=== PATIENT | male | born 1965 | race Caucasian/White ===

== ENCOUNTER 2022-12-25 11:37 | Inpatient (IN) | payer BC ==
[~2022-12-25] VITALS: Ht 175.3 cm; Wt 72.6 kg
[2022-12-25] MEDS ORDERED: METOCLOPRAMIDE HCL 10 MG/2 ML VIAL IV ONE (11:45)
[2022-12-25] MEDS ORDERED: KETOROLAC TROMETHAMINE 15 MG INJ IVP ONE (11:45)
[2022-12-25] MEDS ORDERED: IV NORMAL SALINE 1000 ML BAG IV ONE (11:45)
[2022-12-25 12:03] LABS: *BILIRUBIN,URIN NEGATIVE (NEGATIVE); *CLARITY,URINE CLEAR (CLEAR); *COLOR,URINE YELLOW (YELLOW); *KETONES,URINE TRACE (NEGATIVE); *UROBILINOGEN,URINE 0.2 E.U./dl (NORMAL); LEUKOCYTE ESTERASE ,URINE NEGATIVE (NEGATIVE); NITRITE, URINE NEGATIVE (NEGATIVE); PH,URINE 7.5 (5.0-8.0); UGLUCOSE NEGATIVE (NEGATIVE)
[2022-12-25] MEDS ORDERED: KETOROLAC TROMETHAMINE 15 MG INJ ONE (12:04)
[2022-12-25] MEDS ORDERED: METOCLOPRAMIDE HCL 10 MG/2 ML VIAL ONE (12:04)
--- NOTE | 2022-12-25 12:09 | NUR ---
PT IS IN ROOM #3. DR BRADLEY EVALUATED THE PT.
[2022-12-25 12:13] LABS: HEMATOCRIT 44.9 % (36.7-47.1); MEAN CORPUSCULAR HEMOGLOBIN 29.4 uug (23.8-33.4); MEAN CORPUSCULAR VOLUME 87.6 fL (73.0-96.2); PLATELET COUNT (AUTO) 298 K/uL (152-348)
[2022-12-25 12:33] LABS: *BLOOD, URINE TRACE (NEGATIVE)
[2022-12-25 13:15] LABS: ALANINE AMINOTRANSFERASE 29 U/L (16-63); ALKALINE PHOSPHATASE 55 U/L (50-136); ASPARTATE AMINOTRANSFERASE 12 U/L (15-37); BILIRUBIN,TOTAL 1.6 mg/dL (0.2-1.0); CARBON DIOXIDE 25 mmol/L (21-32); CHLORIDE 103 mmol/L (98-107); CREATININE 0.9 mg/dL (0.6-1.3); GLUCOSE 118 mg/dL (74-106); POTASSIUM 3.4 mmol/L (3.5-5.1); TOTAL PROTEIN, SERUM 7.5 g/dL (6.4-8.2); UREA NITROGEN, BLOOD 10 mg/dL (7-18)
[2022-12-25] MEDS ORDERED: ONDANSETRON 4 MG/2 ML VIAL IV ONE (13:30)
[2022-12-25] MEDS ORDERED: CEFTRIAXONE 2 G in IV DEXTROSE 5% 100 ML IV ONE (13:30)
[2022-12-25] MEDS ORDERED: MORPHINE SULFATE 2 MG/1 ML DISP.SYRIN IV ONE (13:30)
[2022-12-25] MEDS ORDERED: METRONIDAZOLE 500 MG/NS 100 ML PIGGYBACK IV ONE (13:30)
--- NOTE | 2022-12-25 13:30 | NUR ---
"Plan to admit" per Dr Chinchilla. ER registration/admitting staff Kaushal notified.
[2022-12-25] MEDS ORDERED: MORPHINE SULFATE 4 MG/1 ML DISP.SYRIN ONE (13:37)
[2022-12-25] MEDS ORDERED: ONDANSETRON 4 MG/2 ML VIAL ONE ×2 (13:37→16:00)
[2022-12-25] MEDS ORDERED: CEFTRIAXONE 1 G VIAL ONE (13:38)
[2022-12-25] MEDS ORDERED: CEFTRIAXONE /D5W 50ML IVPB **ER PYXIS IV ONE (13:38)
[2022-12-25] MEDS ORDERED: METRONIDAZOLE 500 MG/NS 100ML 100 ML IV ONE (13:39)
[2022-12-25 13:47] LABS: BACTERIA,URINE NONE SEEN /HPF (NONE SEEN); CALCIUM CARBONATE CRYSTALS,UR NONE SEEN /HPF (NONE SEEN); CALCIUM OXALATE CRYSTALS,UR NONE SEEN /HPF (NONE SEEN); CALCIUM PHOSPHATE CRYSTALS,UR NONE SEEN /HPF (NONE SEEN); COARSE GRANULAR CASTS,URINE NONE SEEN /LPF; CYSTINE CRYSTALS,URINE NONE SEEN /HPF (NONE SEEN); FATTY CASTS,URINE NONE SEEN /LPF (NONE SEEN); MUCUS,URINE NONE SEEN /LPF (0-FEW); RED BLOOD CELL CASTS,URINE NONE SEEN /LPF (NONE SEEN); SPERM,URINE NONE SEEN /HPF (NONE SEEN); SQUAMOUS EPITHELIAL CELL,UR NONE SEEN /HPF (NONE SEEN); TRICHOMONAS,URINE NONE SEEN /HPF (NONE SEEN); TRIPLE PHOSPHATE CRYSTAL,UR NONE SEEN /HPF (NONE SEEN); TYROSINE CRYSTAL,URINE NONE SEEN /HPF (NONE SEEN); URIC ACID CRYSTALS,URINE NONE SEEN /HPF (NONE SEEN); URINE AMORPHOUS PHOSPHATES NONE SEEN /HPF; URINE AMORPHOUS URATE NONE SEEN /HPF; WAXY CASTS,URINE NONE SEEN /LPF (NONE SEEN); WBC,URINE 0-3 /HPF (0-3); YEAST,URINE NONE SEEN /HPF (NONE SEEN)
--- NOTE | 2022-12-25 14:56 | NUR ---
REPORT WAS GIVEN TO RN M/S. DR BRADLEY TALKED TO DR CHRISTINA ABOUT PT's SURGERY. PT WAS TRANSFERD TO M/S ROOM #325.
--- NOTE | 2022-12-25 15:30 | NUR ---
[age] year old male received to room 325 for appendicitis .pt is axox4 brp vs are stable call light with in reach ,orient the pt to room . notified for the admission
[2022-12-25] MEDS ORDERED: SUCCINYLCHOLINE CHLORIDE 200 MG/10 ML VIAL ONE (16:00)
[2022-12-25] MEDS ORDERED: CEFAZOLIN 1 G VIAL ONE (16:00)
[2022-12-25] MEDS ORDERED: DEXAMETHASONE SOD PHOSPHATE 4 MG INJ ONE (16:00)
[2022-12-25] MEDS ORDERED: PROPOFOL 200 MG/20 ML BOTTLE ONE (16:00)
[2022-12-25] MEDS ORDERED: VECURONIUM BROMIDE 10 MG VIAL IV ONE (16:00)
[2022-12-25 16:15] VITALS: BP 132/87
[2022-12-25 16:15] LABS: LIPASE < 5 U/L (73-393)
--- NOTE | 2022-12-25 16:34 | NUR ---
pt went to or for surgery via bed
[2022-12-25] MEDS ORDERED: FENTANYL CITRATE 100 MCG/2 ML AMPUL ONE (16:35)
[2022-12-25] MEDS ORDERED: MIDAZOLAM HCL 2 MG/2 ML VIAL ONE (16:35)
[2022-12-25] MEDS ORDERED: MORPHINE SULFATE 2 MG/1 ML DISP.SYRIN IV PRN (16:45)
[2022-12-25] MEDS ORDERED: ACETAMINOPHEN 650 MG SUPP.RECT RC PRN (16:45)
[2022-12-25] MEDS ORDERED: POTASSIUM CHLORIDE 20 MEQ in IV D5/ 0.9% NACL 1,000 ML IV PRN (16:45)
[2022-12-25] MEDS ORDERED: ONDANSETRON 4 MG/2 ML VIAL IV PRN ×2 (16:45→20:15)
[2022-12-25] MEDS ORDERED: BUPIVACAINE/EPI PF 0.25% 10 ML VIAL IJ ONE (17:10)
[2022-12-25] MEDS ORDERED: LIDOCAINE HCL 1% 20 ML VIAL ONE (17:10)
[2022-12-25] MEDS ORDERED: BACITRACIN ZINC OINT 15 GM TUBE ONE (17:11)
[2022-12-25] MEDS ORDERED: PHYTONADIONE 10 MG/1 ML AMPUL ONE (17:47)
[2022-12-25] MEDS ORDERED: PIPERACILLIN SODIUM/TAZOBACTAM 3.375 G in IV DEXTROSE 5% 50 ML IV SCH (18:00)
[2022-12-25] MEDS ORDERED: HYDROMORPHONE 1 MG/1 ML DISP.SYRIN ONE (18:50)
--- NOTE | 2022-12-25 20:00 | NUR ---
PT ARRIVED FROM SURGERY. RECEIVED REPORT FROM POST OP TREE HERRERA. ALL MD ORDERS CARRIED OUT. PT COMPLAINED OF 5/10 PAIN. PAIN MEDS GIVEN ORDERED. IV SITE ON R AC 18G INTACT AND PATENT. PT ON CLEAR LIQUID DIET TO ADVANCE DIET TOMORROW. ALL NEEDS ATTENDED.
[2022-12-25] MEDS ORDERED: HYDROMORPHONE 2 MG/1 ML DISP.SYRIN IV PRN (20:15)
[2022-12-25] MEDS ORDERED: IV LACTATED RINGERS SOLUTION 1,000 ML IV PRN (20:15)
[2022-12-25 20:22] VITALS: BP 109/70
[2022-12-25 20:46] LABS: HEMATOCRIT 40.3 % (36.7-47.1); MEAN CORPUSCULAR HEMOGLOBIN 29.6 uug (23.8-33.4); PLATELET COUNT (AUTO) 264 K/uL (152-348)
[2022-12-25] MEDS: CELECOXIB 200 MG CAPSULE PO SCH (20:54)
[2022-12-25] MEDS: GABAPENTIN 300 MG CAPSULE PO SCH ×3 (20:54→22:27)
[2022-12-25] MEDS ORDERED: ACETAMINOPHEN 325 MG TABLET PO PRN (21:00)
[2022-12-25 21:06] LABS: MAGNESIUM 1.5 mg/dL (1.8-2.4); PHOSPHOROUS 1.9 mg/dL (2.5-4.9)
[2022-12-25] MEDS: PIPERACILLIN SODIUM/TAZOBACTAM 3.375 G in IV DEXTROSE 5% 100 ML IV SCH (21:07)
[2022-12-26] MEDS: GABAPENTIN 300 MG CAPSULE PO SCH ×2 (05:39→14:26)
[2022-12-26] MEDS: PIPERACILLIN SODIUM/TAZOBACTAM 3.375 G in IV DEXTROSE 5% 100 ML IV SCH ×2 (05:39→13:15)
[2022-12-26 06:42] LABS: HEMATOCRIT 39.6 % (36.7-47.1); MEAN CORPUSCULAR HEMOGLOBIN 29.8 uug (23.8-33.4); MEAN CORPUSCULAR VOLUME 88.7 fL (73.0-96.2); PLATELET COUNT (AUTO) 255 K/uL (152-348)
[2022-12-26 07:13] LABS: CREATININE 0.9 mg/dL (0.6-1.3); MAGNESIUM 1.9 mg/dL (1.8-2.4); TOTAL PROTEIN, SERUM 6.5 g/dL (6.4-8.2)
[2022-12-26] MEDS: CELECOXIB 200 MG CAPSULE PO SCH (08:16)
--- NOTE | 2022-12-26 08:30 | NUR ---
pt have soft diet breakfast tolerated well no c/o pain noted .
[2022-12-26] MEDS ORDERED: PANTOPRAZOLE SODIUM 40 MG VIAL IV SCH (09:00)
--- NOTE | 2022-12-26 09:08 | NUR ---
pt walk in the hallway four round tolerated well no sob noted no c/o pain noted ,toll rated well
[2022-12-26 12:00] VITALS: BP 112/69
[2022-12-26 16:00] VITALS: BP 110/77
[2022-12-26] MEDS ORDERED: IBUP-1953 PO (16:33)
[2022-12-26] MEDS ORDERED: CEPH500C2 PO (16:33)
--- NOTE | 2022-12-26 17:08 | NUR ---
DC ORDERS RECEIVED NOTED AND CARRIED OUT,DC HEPLOCK PER MD ORDERS.DC INSTRUCTION AND EDUCATION GIVEN TO THE PT ,PT SAID HE WILL FOLLOW UP WITH THE SURGEON IN ONE WEEK.PT LEFT THE FACILITY VIA PRIVATE CAR IN STABLE CONDITION
== END 2022-12-26 17:10 | disposition home or self-care (01) | DRG 343 ==
LOC: ER 11:39 → MEDSURG3 14:43
PROVIDERS: ADMIT Internal Medicine; ATTEND Internal Medicine
PROC: 0DTJ4ZZ Resection of Appendix, Percutaneous Endoscopic Approach (ICD-10-PCS; principal; 2022-12-25)
DX: K35.80 Unspecified acute appendicitis (principal); N20.0 Calculus of kidney; E87.6 Hypokalemia; Z91.013 Allergy to seafood; Z20.822 Contact with and (suspected) exposure to COVID-19; Z80.3 Family history of malignant neoplasm of breast; Z98.890 Other specified postprocedural states; D72.829 Elevated white blood cell count, unspecified
CPT/HCPCS: 36415; 83605; 83690; 83735; 84100; 84484; 85025; 87040; 93005; A4663; C9113; G0378; J0330; J0690; J0696; J1100; J1170; J1885; J2250; J2270; J2405; J2543; J2765; J3010; J3430; J3480; J3490; J7040; J7042; J7120